=== PATIENT | male | born 1990 | race Caucasian/White ===

== ENCOUNTER 2016-10-10 19:54 | Emergency (ER) | payer SELFPAY | END 2016-10-10 20:48 | disposition left against medical advice (07) | LOC: ED 19:54 → EDSEX 19:54 → ED 20:48 | DX: Z53.9 Procedure and treatment not carried out, unspecified reason (principal) ==

== ENCOUNTER 2019-11-01 19:20 | Emergency (ER) | payer SELFPAY ==
[2019-11-01 19:32] VITALS: O2SAT 98
[2019-11-01] MEDS ORDERED: TORAdol 30 mg Injection IM ONE (19:33)
[2019-11-01] MEDS ORDERED: TORAdol 30 mg Injection ONE (19:34)
--- NOTE | 2019-11-01 20:25 | ERPHSYRPT ---
- History of Present Illness Time Seen by Provider: 11/01/19 19:49 Source: patient Exam Limitations: no limitations Patient Subjective Stated Complaint: pt states that he was playing football in the pool when he went to catch it and caught the ball wrong, pt states that he felt his left 5th finger bend the wrong way Triage Nursing Assessment: pt ambulated into the er, pt is axo x4, pt has disformity to left 5th finger, pt has good pulses and good cap refill, tenderness with touch present to 5th finger Physician History: 29 years old male presented in the ER after he tried to catch a football and accidentally got hit in the left fifth digit causing a pop and band. He is not able to move his fifth digit second and third phalanx. Minimal swelling around. Intact sensations distally. No injury anywhere else Occurred: just prior to arrival Method of Injury: direct blow Quality: constant, sharpness Severity of Pain-Max: moderate Severity of Pain-Current: moderate Extremities Pain Location: 5th finger: left Modifying Factors: Improves With: cold therapy, immobilization, movement Associated Symptoms: none Allergies/Adverse Reactions: No Known Drug Allergies Allergy (Unverified 11/01/19 19:46) Hx Tetanus, Diphtheria Vaccination/Date Given: Yes Hx Influenza Vaccination/Date Given: Yes Hx Pneumococcal Vaccination/Date Given: No Immunizations Up to Date: Yes Travel Risk - International Travel Have you traveled outside of the country in past 3 weeks: No Have you or anyone close to you been diagnosed with or: No Do your reside in a community with a known COVID-19 case?: Yes If Yes where:: [facility] - Coronavirus Screening Has patient experienced Coronavirus symptoms: No - Review of Systems Constitutional: No Symptoms Eyes: No Symptoms Respiratory: No Symptoms Cardiac: No Symptoms Abdominal/Gastrointestinal: No Symptoms Musculoskeletal: Injury, Joint Pain, Joint Swelling Skin: No Symptoms Neurological: No Symptoms Psychological: No Symptoms Endocrine: No Symptoms, Excessive Sweating Immunological/Allergic: No Symptoms - Past Medical History Pertinent Past Medical History: Yes Neurological History: No Pertinent History ENT History: No Pertinent History Cardiac History: No Pertinent History Respiratory History: No Pertinent History Endocrine Medical History: No Pertinent History Musculoskeletal History: No Pertinent History GI Medical History: No Pertinent History History: No Pertinent History Psycho-Social History: No Pertinent History Male Reproductive Disorders: No Pertinent History - Past Surgical History Past Surgical History: Yes Neuro Surgical History: No Pertinent History Cardiac: No Pertinent History Respiratory: No Pertinent History Gastrointestinal: No Pertinent History Genitourinary: No Pertinent History Musculoskeletal: No Pertinent History Male Surgical History: No Pertinent History - Social History Smoking Status: Light tobacco smoker Exposure to second hand smoke: Yes Drug Use: none Patient Lives Alone: No - Nursing Vital Signs Nursing Vital Signs: Initial Vital Signs Temperature 98.5 F 11/01/19 19:31 Pulse Rate 84 11/01/19 19:31 Respiratory Rate 18 11/01/19 19:31 Blood Pressure 140/84 11/01/19 19:31 O2 Sat by Pulse Oximetry 98 11/01/19 19:31 Pain Scale Pain Intensity 4 - Physical Exam General Appearance: no apparent distress Eyes, Ears, Nose, Throat Exam: normal ENT inspection Neck Exam: supple, full range of motion Cardiovascular/Respiratory Exam: normal breath sounds, regular rate/rhythm Shoulder Exam: normal inspection Elbow/Forearm Exam: normal inspection Wrist Exam: normal inspection Hand Exam: asymmetry, bone tenderness (Left fifth digit proximal interphalangeal joint tenderness and deformity, inability to move), deformity, limited ROM, stiffness Neuro/Tendon Exam: normal sensation Mental Status Exam: alert, oriented x 3, cooperative Skin Exam: normal color SpO2 Interpretation: normal SpO2: 98 O2 Delivery: Room Air Procedures - Joint Reduction Timeout: Performed Joint Reduction Site: Left, finger, 5th digit Conscious Sedation: No Reduction Attempts: 1 Pre-Procedure Neurovascular Exam: neurovascular intact Post Procedure Neurovascular Exam: neurovascular intact Post Joint Reduction Film: joint reduced Progress: Left proximal interphalangeal joint dislocation. Given digital block with lidocaine 1% without epi. Successful reduction and aluminum splint application - Course Nursing assessment & vital signs reviewed: Yes Ordered Tests: Active Orders 24 hr Category Date Time Status HAND (MINIMUM 3 VIEWS) Stat Exams 11/01/19 19:33 Taken HAND (MINIMUM 3 VIEWS) Stat Exams 11/01/19 20:03 Taken Medication Summary Discontinued Medications Generic Name Dose Route Start Last Admin Trade Name Freq PRN Reason Stop Dose Admin Ketorolac Tromethamine 30 mg 11/01/19 19:33 11/01/19 19:35 Toradol 30 Mg Injection IM 11/01/19 19:34 30 mg STAT ONE Administration Ketorolac Tromethamine Confirm 11/01/19 19:34 Toradol 30 Mg Injection Administered 11/01/19 19:35 Dose 30 mg .ROUTE .STK-MED ONE - Progress Progress: improved, pain not gone completely Progress Note: 11/01/19 20:24 Interphalangeal joint dislocation reduction is done. Placed in aluminum splint. Recommended taking Tylenol ibuprofen and outpatient follow-up with Ortho clinic. Counseled pt/family regarding: diagnosis, need for follow-up, rad results - Departure Departure Disposition: Home Clinical Impression: Finger dislocation Qualifiers: Encounter type: initial encounter Qualified Code(s): S63.259A - Unspecified dislocation of unspecified finger, initial encounter Condition: Stable Critical Care Time: No Referrals: MEGHA LEÓN [Primary Care Provider] - Follow Up with PCP/3 days MAMTA ROY NP [NON-STAFF PHY W/O PRIVILEGES] - Follow Up with PCP/3 days Instructions: Finger Dislocation (DC) Additional Instructions: Take Tylenol/ibuprofen as needed. Follow-up with orthopedic surgery for reevaluation before removal of splint. Return to ER for any worsening. Prescriptions: Ibuprofen 600 mg PO Q6HPRN PRN 10 Days #20 tablet PRN Reason: Pain
[2019-11-01 20:28] VITALS: BP 131/76; PULSE 80
--- NOTE | 2019-11-01 21:41 | XRAY ---
Indication: 5th finger deformity following football injury. Comparison: None 3 view left hand demonstrates 5th PIP dislocation. No other bony, articular, or soft tissue abnormalities.
--- NOTE | 2019-11-01 21:44 | XRAY ---
Indication: Postreduction. Comparison: Taken earlier in the day. 3 view left hand demonstrates successful reduction previous 5th PIP dislocation. No other bony, articular, or soft tissue abnormalities.
== END 2019-11-01 20:33 | disposition home or self-care (01) ==
LOC: ED 19:20
DX: S63.125A Dislocation of interphalangeal joint of left thumb, initial encounter (principal); S63.682A Other sprain of left thumb, initial encounter; W21.01XA Struck by football, initial encounter
CPT/HCPCS: 26770; 73130; 96372; 99284; J1885

== ENCOUNTER 2021-03-15 10:31 | Emergency (ER) | payer OTHER ==
[2021-03-15] MEDS ORDERED: TORAdol 30 mg Injection IM ONE (10:38)
--- NOTE | 2021-03-15 10:43 | ERPHSYRPT ---
- History of Present Illness Time Seen by Provider: 03/15/21 12:34 Source: patient Exam Limitations: no limitations Physician History: Patient is a 31-year-old male presents to our emergency department for evaluation of pain to his left ankle and foot. Patient was at work. Patient states a dozer blade lowered onto his foot and ankle area. Patient now experiencing pain to left foot and ankle. There are no lacerations. No open or draining lesions. No other injuries reported. Patient denies knee pain. No hip pain. Patient's pain described as an ache that is localized. No radiation. Pain worse with movement pain improved with rest. No other injuries reported. Patient is otherwise healthy. He voices no other complaints or concerns at this time. Method of Injury: direct blow Occurred: just prior to arrival Quality: constant Severity of Pain-Max: moderate Severity of Pain-Current: mild Lower Extremities Pain: ankle: left Modifying Factors: Improves With: movement Associated Symptoms: none Allergies/Adverse Reactions: No Known Drug Allergies Allergy (Verified 03/15/21 10:50) Hx Tetanus, Diphtheria Vaccination/Date Given: Yes Hx Influenza Vaccination/Date Given: Yes Hx Pneumococcal Vaccination/Date Given: No - Review of Systems Constitutional: No Symptoms, No Fever, No Chills Eyes: No Symptoms Ears, Nose, & Throat: No Symptoms Respiratory: No Symptoms, No Cough, No Dyspnea Cardiac: No Symptoms, No Chest Pain, No Edema, No Syncope Abdominal/Gastrointestinal: No Symptoms, No Abdominal Pain, No Nausea, No Vomiting, No Diarrhea Genitourinary Symptoms: No Symptoms, No Dysuria Musculoskeletal: No Symptoms, No Back Pain, No Neck Pain Skin: No Symptoms, No Rash Neurological: No Symptoms, No Dizziness, No Focal Weakness, No Sensory Changes Psychological: No Symptoms Endocrine: No Symptoms Hematologic/Lymphatic: No Symptoms Immunological/Allergic: No Symptoms All Other Systems: Reviewed and Negative - Past Medical History Pertinent Past Medical History: Yes Neurological History: No Pertinent History ENT History: No Pertinent History Cardiac History: No Pertinent History Respiratory History: No Pertinent History Endocrine Medical History: No Pertinent History Musculoskeletal History: No Pertinent History GI Medical History: No Pertinent History History: No Pertinent History Psycho-Social History: No Pertinent History Male Reproductive Disorders: No Pertinent History - Past Surgical History Past Surgical History: Yes Neuro Surgical History: No Pertinent History Cardiac: No Pertinent History Respiratory: No Pertinent History Gastrointestinal: No Pertinent History Genitourinary: No Pertinent History Musculoskeletal: No Pertinent History Male Surgical History: No Pertinent History - Social History Smoking Status: Light tobacco smoker Exposure to second hand smoke: Yes Drug Use: none Patient Lives Alone: No - Nursing Vital Signs Nursing Vital Signs: Initial Vital Signs Temperature 98.2 F 03/15/21 10:36 Pulse Rate 81 03/15/21 10:36 Respiratory Rate 21 03/15/21 10:36 Blood Pressure 134/104 03/15/21 10:36 O2 Sat by Pulse Oximetry 98 03/15/21 10:36 Pain Scale Pain Intensity 10 - Physical Exam General Appearance: no apparent distress, alert Eyes, Ears, Nose, Throat Exam: normal ENT inspection, TMs normal, pharynx normal, moist mucous membranes Neck Exam: normal inspection, non-tender, supple, full range of motion Cardiovascular/Respiratory Exam: chest non-tender, normal breath sounds, regular rate/rhythm, heart sounds normal, no respiratory distress Gastrointestinal/Abdominal Exam: non-tender, soft, guarding Back Exam: normal inspection, normal range of motion, No vertebral tenderness Hips Exam: bilateral: non-tender, normal inspection, normal range of motion, no evidence of injury Legs Exam: bilateral leg: non-tender, normal inspection, normal range of motion, no evidence of injury Knees Exam: bilateral knee: non-tender, normal inspection, normal range of motion, no evidence of injury Ankle Exam: right ankle: non-tender, normal inspection, normal range of motion, no evidence of injury, left ankle: pain, soft tissue tenderness, swelling, other (Palpable PT DP pulse. Compartments are soft. Cap refill less than 2 seconds.) Foot Exam: left foot: abrasions/lacerations (Abrasions to lateral aspect left ankle. No lacerations. No active bleeding), bilateral foot: non-tender, normal inspection, normal range of motion Neuro/Tendon Exam: normal sensation, normal motor functions, normal tendon functions Mental Status Exam: alert, oriented x 3, cooperative Skin Exam: normal color, warm, dry SpO2 Interpretation: normal SpO2: 98 O2 Delivery: Room Air - Course Nursing assessment & vital signs reviewed: Yes - Radiology Exams Ankle X-ray Interpretation: Teleradiologist Report (Nondisplaced medial malleolus fracture with soft tissue swelling. No other bony articular or soft tissue abnormalities observed.) Foot X-ray Interpretation: Teleradiologist Report (Query cortical fracture base fifth metatarsal medial aspect. No other bony articular or soft tissue abnormalities.) Lower Leg X-ray Interpretation: Teleradiologist Report (Nondisplaced medial malleolus fracture with soft tissue swelling and scattered venous varicosities. No other bony articular or soft tissue abnormalities.) Ordered Tests: Active Orders 24 hr Category Date Time Status ANKLE (3 VIEWS) Stat Exams 03/15/21 10:37 Completed FOOT (MINIMUM 3 VIEWS) Stat Exams 03/15/21 10:37 Completed LOWER LEG Stat Exams 03/15/21 11:29 Completed Medication Summary Discontinued Medications Generic Name Dose Route Start Last Admin Trade Name Freq PRN Reason Stop Dose Admin Ketorolac Tromethamine 60 mg 03/15/21 10:38 03/15/21 10:48 Ketorolac Tromethamine 30 Mg/Ml Inj IM 03/15/21 10:39 60 mg STAT ONE Administration Ketorolac Tromethamine Confirm 03/15/21 10:44 Ketorolac Tromethamine 30 Mg/Ml Inj Administered 03/15/21 10:45 Dose 60 mg .ROUTE .Tailored Fit-MED ONE - Progress Progress: improved Progress Note: X-ray reveals a medial malleolus fracture as well as a fracture of the base of the fifth metatarsal medial aspect. Patient placed in a post mold sugar tong. Bilateral axillary crutches provided. Pain well controlled. Extremity neurovascular intact distally. Patient referred to orthopedic clinic. Plan of care discussed with patient. He will follow-up in the orthopedic clinic as advised. Patient voices no other complaints concerns at this time. 03/15/21 11:28 03/15/21 12:37 Portions of this note were created with voice recognition technology. There may be grammatical, spelling, punctuation or sound alike errors Counseled pt/family regarding: diagnosis, need for follow-up, rad results - Departure Departure Disposition: Home Clinical Impression: Fractured medial malleolus, Fracture of 5th metatarsal Condition: Stable Critical Care Time: No Referrals: DO BRUNO DPM [ACTIVE STAFF] - MEGHA LEÓN [Primary Care Provider] - Instructions: Ankle Fracture (DC) Additional Instructions: Discharge/Care Plan SAÚL CHAVEZ was seen on 03/15/21 in the Emergency Room. The patient was counseled regarding Diagnosis,Lab results, Imaging studies, need for follow up and when to return to the Emergency Room. Prescriptions given: Discharge Note I have spoken with the patient and/or caregivers. I have explained the patient's condition, diagnosis and treatment plan based on the information available to me at this time. I have answered the patient's and/or caregiver's questions and addressed any concerns. The patient and/or caregivers have as good understanding of the patient's diagnosis, condition and treatment plan as can be expected at this point. The vital signs have been stable. The patient's condition is stable and appropriate for discharge from the emergency department. The patient will pursue further outpatient evaluation with the primary care physician or other designated or consulting physician as outlined in the discha rge instructions. The patient and/or caregivers are agreeable to this plan of care and follow-up instructions have been explained in detail. The patient and/or caregivers have received these instruction. The patient/and or caregivers are aware that any significant change in condition or worsening of symptoms should prompt an immediate return to this or the closest emergency department or call 911. Outpatient Orders: Ortho Referral Time Frame: 1 Day, Facility: [facility] Hosp, Location: [facility]
[2021-03-15] MEDS ORDERED: TORAdol 30 mg Injection ONE (10:44)
[2021-03-15 10:51] VITALS: O2SAT 98
--- NOTE | 2021-03-15 11:24 | XRAY ---
Indication: Pain following injury. Comparison: None 3 view left ankle demonstrates nondisplaced medial malleolus fracture with soft tissue swelling. No other bony, articular, or soft tissue abnormalities.
--- NOTE | 2021-03-15 11:26 | XRAY ---
Indication: Pain following injury. Comparison: None 3 nonweightbearing views left foot demonstrates nondisplaced medial malleolus fracture with soft tissue swelling. Query cortical fracture base 5th metatarsal medial aspect. No other bony, articular, or soft tissue abnormalities.
--- NOTE | 2021-03-15 12:24 | XRAY ---
Indication: Pain following injury. Comparison: None 2 view left lower leg demonstrates nondisplaced medial malleolus fracture with soft tissue swelling and scattered venous varicosities. No other bony, articular, or soft tissue abnormalities.
[2021-03-15 12:52] VITALS: BP 122/74; PULSE 69
== END 2021-03-15 13:16 | disposition home or self-care (01) ==
LOC: ED 10:31
DX: W22.8XXA Striking against or struck by other objects, initial encounter (principal); Y93.89 Activity, other specified; Y92.89 Other specified places as the place of occurrence of the external cause
CPT/HCPCS: 73590; 73610; 73630; 96372; 99284; J1885